=== PATIENT | male | born 1990 | race Caucasian/White ===

== ENCOUNTER 2016-12-30 16:41 | Emergency (ER) | payer OTHER ==
[2016-12-30 16:45] VITALS: BMI 23.6
--- NOTE | 2016-12-30 17:21 | PDOC ---
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 He sustained lacerations to the forehead and nose, with some bleeding from the left nare. No LOC, no other injuries. Tetanus is not up to date. He c/o moderate facial pain, lightheadedness. <Mila Bautista - Last Filed: 12/31/16 11:54> - General Chief Complaint: Laceration Stated Complaint: LACERATION TO HEAD Time Seen by Provider: 12/30/16 17:21 Past History <Luciana oL - Last Filed: 12/30/16 20:51> <Jneelle Adams - Last Filed: 12/30/16 20:58> - Past Medical History Other medical history: denies - Psycho/Social/Smoking Cessation Hx Anxiety: No Suicidal Ideation: No Smoking History: Never smoked Have you smoked in the past 12 months: No Information on smoking cessation initiated: No Hx Alcohol Use: No Drug/Substance Use Hx: No Substance Use Type: None <Mila Bautista - Last Filed: 12/31/16 11:54> - Past Medical History Allergies/Adverse Reactions: Allergies Allergy/AdvReac Type Severity Reaction Status Date / Time No Known Allergies Allergy Verified 12/30/16 16:43 Home Medications: Ambulatory Orders Amoxicillin/Potassium Clav [Augmentin 875-125 Tablet] 1 each PO BID #20 tablet 12/30/16 Bacitracin Ophthalmic Oint - 0.5 inch OS BID #1 tube 12/30/16 Ibuprofen [Motrin -] 600 mg PO TID PRN #21 tablet 12/30/16 Oxycodone HCl/Acetaminophen [Percocet 5-325 mg Tablet] 1 tab PO Q6H PRN #12 tablet MDD 4 tabs 12/30/16 Review of Systems - Review of Systems Able to Perform ROS?: Yes Comments:: GENERAL/CONSTITUTIONAL: No fever or chills. No weakness. HEAD, EYES, EARS, NOSE AND THROAT: No change in vision. No ear pain or discharge. No sore throat. +Facial lacerations. SKIN: No rash NEUROLOGIC: No headache, vertigo, loss of consciousness, or change in strength/ sensation. ENDOCRINE: No increased thirst. No abnormal weight change. HEMATOLOGIC/LYMPHATIC: No anemia, easy bleeding, or history of blood clots. <MicheleMila - Last Filed: 12/31/16 11:54> *Physical Exam - Vital Signs Last Vital Signs Temp Pulse Resp BP Pulse Ox 97.8 F 90 20 130/82 99 12/30/16 19:56 12/30/16 19:56 12/30/16 19:56 12/30/16 19:56 12/30/16 19:56 <Luciana Lo - Last Filed: 12/30/16 20:51> - Vital Signs Last Vital Signs Temp Pulse Resp BP Pulse Ox 98 F 77 20 141/74 100 12/30/16 16:43 12/30/16 16:43 12/30/16 16:43 12/30/16 16:43 12/30/16 16:43 <AdamsJenelle - Last Filed: 12/30/16 20:58> - Vital Signs Last Vital Signs Temp Pulse Resp BP Pulse Ox 98 F 77 20 141/74 100 12/30/16 16:43 12/30/16 16:43 12/30/16 16:43 12/30/16 16:43 12/30/16 16:43 - Physical Exam Comments: GENERAL: Awake, alert, and fully oriented, in no acute distress HEAD: +Lacerations to the forehead and left side of nose with exposure of bone. EYES: L eye with tearing, subconjunctival hematoma. PERRLA, EOMI, sclera anicteric. R conjunctiva clear ENT: Auricles normal inspection, hearing grossly normal, nares patent, oropharynx clear without exudates. Moist mucosa. Slight bleeding from L nare, with deformity of the nasal bridge. NECK: Normal ROM, supple, no lymphadenopathy, JVD, or masses EXTREMITIES: Normal range of motion, no edema. No clubbing or cyanosis. No cords, erythema, or tenderness NEUROLOGICAL: Cranial nerves II through XII grossly intact. Normal speech, normal gait SKIN: Warm, Dry, normal turgor, no rashes or lesions noted. <Mila Bautista - Last Filed: 12/31/16 11:54> ED Treatment Course - RADIOLOGY Radiograph Interpretation: CT scan of the brain without intravenous contrast. The ventricles and basal cisterns appear unremarkable. No gross mass lesion, focal infarct or intracranial hemorrhage are identified. . Previously described left orbital medial wall fracture on prior CT scan of the facial bones again seen with an air-fluid level in the left maxillary antrum as well as partial desiccation of the left ethmoid air cells and small air-fluid level in left side of the frontal sinus. The calvarium is otherwise intact. Impression: See discussion above. No acute intracranial pathology is identified - Medications Given in the ED: ED Medications Discontinued Medications Generic Name Dose Route Start Last Admin Trade Name Freq PRN Reason Stop Dose Admin Diphtheria/Tetanus/Acell Pertussis 0.5 ml 12/30/16 17:50 12/30/16 18:26 Adacel Adolescent/Adult - IM 12/30/16 17:51 0.5 ml .ONCE ONE Administration Ondansetron HCl 4 mg 12/30/16 19:53 12/30/16 19:55 Zofran - PO 12/30/16 19:54 4 mg ONCE ONE Administration Oxycodone/Acetaminophen 1 combo 12/30/16 17:35 12/30/16 17:44 Percocet 5/325 - PO 12/30/16 17:36 1 combo ONCE ONE Administration <TeresitaLuciana - Last Filed: 12/30/16 20:51> - Medications Given in the ED: ED Medications Discontinued Medications Generic Name Dose Route Start Last Admin Trade Name Freq PRN Reason Stop Dose Admin Diphtheria/Tetanus/Acell Pertussis 0.5 ml 12/30/16 17:50 12/30/16 18:26 Adacel Adolescent/Adult - IM 12/30/16 17:51 0.5 ml .ONCE ONE Administration Oxycodone/Acetaminophen 1 combo 12/30/16 17:35 12/30/16 17:44 Percocet 5/325 - PO 12/30/16 17:36 1 combo ONCE ONE Administration <Jenelle Adams - Last Filed: 12/30/16 20:58> Medical Decision Making - Medical Decision Making Pt endorsed to Dr. Adams at 7pm signout. Wounds repaired by Dr. Ferrer. Awaiting official read of the CT facial bones. If there is an orbital wall fx, Dr. Ferrer recommended Dr. Rinaldi for f/u, will give patient the contact information. Rx written for pain, abx coverage (for open fracture of nose), and bacitracin ophthalmic. F/u in ED Monday AM for wound check. <Mila Bautista - Last Filed: 12/31/16 11:54> *DC/Admit/Observation/Transfer <TeresitaLuciana - Last Filed: 12/30/16 20:51> - Discharge Dispostion Admit: No <Jenelle Adams - Last Filed: 12/30/16 20:58> <Mila Bautista - Last Filed: 12/31/16 11:54> Diagnosis at time of Disposition: Medial orbital wall fracture, Facial laceration, Nose fracture - Discharge Dispostion Disposition: HOME Condition at time of disposition: Improved - Prescriptions Prescriptions: Amoxicillin/Potassium Clav [Augmentin 875-125 Tablet] 1 each PO BID #20 tablet Bacitracin Ophthalmic Oint - 0.5 inch OS BID #1 tube Ibuprofen [Motrin -] 600 mg PO TID PRN #21 tablet PRN Reason: Pain Oxycodone HCl/Acetaminophen [Percocet 5-325 mg Tablet] 1 tab PO Q6H PRN #12 tablet MDD 4 tabs PRN Reason: Severe Pain - Referrals Referrals: [facility] [Other] (MONDAYS) - Patient Instructions Printed Discharge Instructions: DI for Nose Fracture, DI for Laceration Repair -- Complex Additional Instructions: Return to the ER on Monday morning for wound check. Apply bacitracin ophthalmic ointment twice a day as directed.
[2016-12-30] MEDS ORDERED: OXYCODONE/APAP 5/325MG COMBO TABLET PO ONE (17:35)
[2016-12-30] MEDS ORDERED: OXYCODONE/APAP 5/325MG COMBO TABLET ONE (17:39)
[2016-12-30] MEDS ORDERED: DIPHTH,PERTUSS(ACELL),TET VAC 0.5 ML VIAL IM ONE (17:50)
[2016-12-30] MEDS ORDERED: LIDOCAINE 1%/EPI 1:100000 (50 ML MULTI DOSE VIAL) ONE (18:15)
[2016-12-30] MEDS ORDERED: ONDANSETRON 4 MG TABLET PO ONE (19:53)
[2016-12-30] MEDS ORDERED: ONDANSETRON *ODT* 4 MG TABLET ONE (19:53)
[2016-12-30 19:57] VITALS: BP 130/82; PULSE 90; TEMP 97.8
== END 2016-12-30 21:07 | disposition home or self-care (01) ==
LOC: JERFT 16:41 → JER 16:41
PROC: 0JQ13ZZ Repair Face Subcutaneous Tissue and Fascia, Percutaneous Approach (ICD-10-PCS; principal; 2016-12-30)
PROC: 09QKXZZ Repair Nasal Mucosa and Soft Tissue, External Approach (ICD-10-PCS; 2016-12-30)
PROC: 3E0234Z Introduction of Serum, Toxoid and Vaccine into Muscle, Percutaneous Approach (ICD-10-PCS; 2016-12-30)
DX: S01.81XA Laceration without foreign body of other part of head, initial encounter (principal); S02.82XA Fracture of other specified skull and facial bones, left side, initial encounter for closed fracture; S02.2XXB Fracture of nasal bones, initial encounter for open fracture; W22.8XXA Striking against or struck by other objects, initial encounter; Y93.89 Activity, other specified; Y92.9 Unspecified place or not applicable; Y99.0 Civilian activity done for income or pay
CPT/HCPCS: 70450-TC; 70486-TC; 99284-25

== ENCOUNTER 2017-01-01 09:54 | Emergency (ER) | payer OTHER ==
[2017-01-01 10:02] VITALS: BP 123/67; PULSE 67; TEMP 98; BMI 23.6
--- NOTE | 2017-01-01 10:50 | PDOC ---
Suture Removal/Wound Check HPI - History of Present Illness Chief Complaint: Revisit,Wound Recheck Stated Complaint: REVISIT, FOLLOW UP Time Seen by Provider: 01/01/17 10:20 History Source: Yes: Patient Exam Limitations: Yes: No Limitations Treated at: [facility] Date of Last ED visit: 12/30/16 - Previous ED Treatment Type of procedure performed on last visit: Yes: Laceration Repair Tetanus Immunization: Yes: Up to Date Antibiotics Prescribed: Yes Past History - Past Medical History Allergies/Adverse Reactions: Allergies No Known Allergies Allergy (Verified 01/01/17 09:57) Home Medications: Ambulatory Orders Amoxicillin/Potassium Clav [Augmentin 875-125 Tablet] 1 each PO BID #20 tablet 12/30/16 Bacitracin Ophthalmic Oint - 0.5 inch OS BID #1 tube 12/30/16 Ibuprofen [Motrin -] 600 mg PO TID PRN #21 tablet 12/30/16 Oxycodone HCl/Acetaminophen [Percocet 5-325 mg Tablet] 1 tab PO Q6H PRN #12 tablet MDD 4 tabs 12/30/16 General: Yes: no pertinent history Surgical History: Yes: No Surgical History - Immunization History Immunizations Up to Date: Yes Tetanus Status: Unknown - Social History Smoking Status: Never smoked Suture Removal/Wound Check PE - Physical Exam Laceration/Wound Check Symptoms: reports: None Current Severity Level: None Maximum Severity Level: None Pain Localization: None *Review of Systems - Review of Systems Constitutional: No: Symptoms Reported Integumentary: Yes: Bruising, Other (left eye periorbital edema with bruising) Neurological: No: Symptoms reported, Paresthesia, Tingling, Tremors All Other Systems: Reviewed and Negative Medical Decision Making - Medical Decision Making 01/01/17 10:51 A/P: Patient here for evaluation and wound check to laceration on left side of face, edema to upper and lower eyelid with bruising, patient states he feels better has been taking his antibiotics and using bacitracin ophthalmic ointment. There is no evidence of cellulitis, area cleansed due to dried blood wound is healing well to follow-up as instructed for suture removal *DC/Admit/Observation/Transfer Diagnosis at time of Disposition: Visit for wound check - Discharge Dispostion Disposition: HOME Condition at time of disposition: Good Admit: No - Patient Instructions Printed Discharge Instructions: How to Care for a Surgical Wound Additional Instructions: Please keep area clean and dry, medication as prescribed please cleanse area prior to administration of more bacitracin. If any increased redness, swelling, fever, headache, or any other concerns return to ER
[2017-01-01] MEDS ORDERED: BACITRACIN 15 GM TUBE TOPICAL OINTMENT ONE (10:54)
[2017-01-01] MEDS ORDERED: BACITRACIN 15 GM TUBE TOPICAL OINTMENT TP ONE (10:55)
== END 2017-01-01 11:12 | disposition home or self-care (01) ==
LOC: JERFT 09:54
DX: Z48.00 Encounter for change or removal of nonsurgical wound dressing (principal); S01.81XD Laceration without foreign body of other part of head, subsequent encounter; S02.82XD Fracture of other specified skull and facial bones, left side, subsequent encounter for fracture with routine healing; W22.8XXD Striking against or struck by other objects, subsequent encounter
CPT/HCPCS: 99281-25

== ENCOUNTER 2017-01-07 09:31 | Emergency (ER) | payer OTHER ==
[2017-01-07 09:35] VITALS: BP 133/75; PULSE 69; TEMP 98.1; BMI 23.6
--- NOTE | 2017-01-07 10:09 | PDOC ---
Suture Removal/Wound Check HPI - History of Present Illness Chief Complaint: Suture/Staple Removal (other) Stated Complaint: SUTURE REMOVAL Time Seen by Provider: 01/07/17 09:48 History Source: Yes: Patient Exam Limitations: Yes: No Limitations Treated at: [facility] Date of Last ED visit: 12/30/16 - Previous ED Treatment Type of procedure performed on last visit: Yes: Laceration Repair Tetanus Immunization: Yes: Up to Date Antibiotics Prescribed: No Past History - Travel Traveled outside of the country in the last 30 days: No Close contact w/someone who was outside of country & ill: No - Past Medical History Allergies/Adverse Reactions: Allergies No Known Allergies Allergy (Verified 01/07/17 09:33) Home Medications: Ambulatory Orders NK [No Known Home Medication] 01/07/17 General: Yes: no pertinent history Surgical History: Yes: No Surgical History - Immunization History Immunizations Up to Date: Yes Tetanus Status: Unknown - Social History Smoking Status: Never smoked Suture Removal/Wound Check PE - Physical Exam Laceration/Wound Check Symptoms: reports: None Current Severity Level: None Maximum Severity Level: None Pain Localization: None Location of Laceration/Wound: left: Head *Review of Systems - Review of Systems Constitutional: No: Symptoms Reported Integumentary: No: Symptoms Reported, Erythema Hematologic/Lymphatic: No: Symptoms Reported Medical Decision Making - Medical Decision Making 01/07/17 10:05 A/P: Patient here for suture removal, 16 sutures are removed from left side of face. There is no erythema edema or localized infection. Patient tolerated well has an appointment on the to follow-up with oral maxillary facial surgeon. *DC/Admit/Observation/Transfer Diagnosis at time of Disposition: Visit for suture removal - Discharge Dispostion Disposition: HOME Condition at time of disposition: Good Admit: No - Patient Instructions Printed Discharge Instructions: DI for Suture Removal Additional Instructions: Please keep area clean and dry. No bacitracin Keep covered from the sun Please follow up with oral maxillary facial surgeon to get cleared to return to work.
== END 2017-01-07 10:11 ==
LOC: JERFT 09:31
CPT/HCPCS: 99281-25